=== PATIENT | male | born 1980 | race African-American/Black ===

== ENCOUNTER 2019-03-05 15:09 | Emergency (ER) | payer OTHER ==
[~2019-03-05] VITALS: Ht 172.7 cm; Wt 84.2 kg
[~2019-03-05 15:09] MED LIST: NOHOMEMEDICATIONS
[2019-03-05 15:36] LABS: ABSOLUTE BASOPHILS 0.1 thou/uL (0.0-0.2); ABSOLUTE EOSINOPHILS 0.1 thou/uL (0.0-0.7); ABSOLUTE LYMPHOCYTES 1.4 thou/uL (0.8-5.3); ABSOLUTE MONOCYTES 0.8 thou/uL (0.0-1.2); ABSOLUTE NEUTROPHILS 4.3 thou/uL (1.6-8.1); BASOPHILS 0.9 %; HEMOGLOBIN 14.7 gm/dL (14.0-18.0); LYMPHOCYTES 20.2 %; MCH 29.8 pg (26.0-34.0); MCHC 33.3 g/dL (28.0-37.0); MCV 89.3 fL (80.0-100.0); MONOCYTES 12.2 %; MPV 6.3 fl. (7.2-11.1); NUCLEATED RBCS 0 /100WBC; PLATELET COUNT* 284 thou/uL (150-400); POLYS 64.7 %; RBC 4.93 mil/uL (4.50-6.00); RDW-CV 14.5 % (10.5-14.5); WBC 6.7 thou/uL (4.0-11.0)
[2019-03-05 15:48] LABS: ANION GAP 10 mmol/L (7-16); BUN 18 mg/dL (7-18); CHLORIDE 102 mmol/L (98-107); CO2 29 mmol/L (21-32); CREATININE 1.2 mg/dL (0.6-1.3); GLUCOSE 126 mg/dL (70-99); POTASSIUM 3.7 mmol/L (3.5-5.1); SODIUM 141 mmol/L (136-145)
[2019-03-05 15:59] LABS: ALBUMIN 3.7 g/dL (3.4-5.0); ALKALINE PHOSPHATASE 116 U/L (46-116); NT-PRO BRAIN NAT PEPTIDE 24 pg/mL (<300); SGOT 18 U/L (15-37); SGPT 28 U/L (30-65); TOTAL BILIRUBIN 0.4 mg/dL (<0.1-1.0); TOTAL PROTEIN 7.8 g/dL (6.4-8.2); TROPONIN-I LEVEL <0.06 ng/mL (<0.06)
--- NOTE | 2019-03-05 16:55 | EKG ---
[place] [address] ELECTROCARDIOGRAM REPORT Name: ROSANGELA BARBOSA Room: [facility]#: [id number] Admission: 03/05/19 Attend Phys: Discharge: Date of : 82 Report #: [id number] THIS REPORT FOR: //name// [facility] ED Test Date: 2019-03-05 Test Time: 15:11:01 Pat Name: ROSANGELA BARBOSA Department: Room: Gender: M Legal Aide: UNKNOWN : 1980 Requested By: Cece Ribeiro Order Number: [id number] MD: Edmar Cornejo Measurements Intervals [place] Rate: 111 P: 63 DC: 122 QRS: 17 QRSD: 81 T: 44 QT: 347 QTc: 472 Interpretive Statements Sinus tachycardia Compared to ECG 08/23/2012 05:33:54 Sinus rhythm no longer present Electronically Signed On 03-05-2019 16:54:57 CDT by Edmar Cornejo [email or web address] <ELECTRONICALLY SIGNED> By: Edmar Cornejo MD, [facility] 03/05/19 1654 D: 06/1510 10 Edmar Cornejo MD, FACC /EPI
[2019-03-05 17:37] LABS: AMP/METHAMP POSITIVE (Negative); BARBITURATES Negative (Negative); BENZODIAZEPINES Negative (Negative); COCAINE POSITIVE (Negative); METHADONE Negative (Negative); OPIATES Negative (Negative); PCP Negative (Negative); THC Negative (Negative)
[2019-03-05 18:44] VITALS: BP 119/80
== END 2019-03-05 18:45 | disposition home or self-care (01) ==
LOC: M.ERS 15:09
PROVIDERS: Nurse Practitioner Family
DX: R07.89 Other chest pain (principal); F19.10 Other psychoactive substance abuse, uncomplicated; Z90.49 Acquired absence of other specified parts of digestive tract

== ENCOUNTER → 2020-09-19 | Emergency (ER) | payer MEDICAID ==
[~2020-09-19] VITALS: Ht 172.7 cm; Wt 88.5 kg
[2020-09-19 16:14] LABS: ABSOLUTE BASOPHILS 0.1 thou/uL (0.0-0.2); ABSOLUTE EOSINOPHILS 0.1 thou/uL (0.0-0.7); ABSOLUTE LYMPHOCYTES 2.1 thou/uL (0.8-5.3); ABSOLUTE MONOCYTES 0.7 thou/uL (0.0-1.2); ABSOLUTE NEUTROPHILS 3.2 thou/uL (1.6-8.1); BASOPHILS 1.3 %; EOSINOPHILS 2.2 %; HEMATOCRIT 43.4 % (42.0-52.0); HEMOGLOBIN 14.3 gm/dL (14.0-18.0); LYMPHOCYTES 33.2 %; MCH 29.7 pg (26.0-34.0); MCHC 32.9 g/dL (28.0-37.0); MCV 90.3 fL (80.0-100.0); MONOCYTES 11.7 %; MPV 6.1 fl. (7.2-11.1); NUCLEATED RBCS 0 /100WBC; PLATELET COUNT* 269 thou/uL (150-400); POLYS 51.6 %; RBC 4.81 mil/uL (4.50-6.00); RDW-CV 14.9 % (10.5-14.5); WBC 6.3 thou/uL (4.0-11.0)
[2020-09-19 16:21] VITALS: BP 163/107
[2020-09-19 16:23] LABS: CALCIUM 8.4 mg/dL (8.5-10.1); CREATININE 1.2 mg/dL (0.6-1.3); POTASSIUM 3.9 mmol/L (3.5-5.1)
[2020-09-19 16:27] LABS: ALBUMIN 3.8 g/dL (3.4-5.0); TOTAL BILIRUBIN 0.2 mg/dL (<0.1-1.0); TOTAL PROTEIN 7.2 g/dL (6.4-8.2)
[2020-09-19 16:32] LABS: ACETAMINOPHEN < 2 ug/mL (10-30); ALCOHOL < 10 mg/dL (<10); SALICYLATE < 2.8 mg/dL (2.8-20.0)
== END ==
LOC: M.ERS 15:41
PROVIDERS: Family Medicine
DX: R41.82 Altered mental status, unspecified (principal); I25.2 Old myocardial infarction; F17.210 Nicotine dependence, cigarettes, uncomplicated; Z90.49 Acquired absence of other specified parts of digestive tract

== ENCOUNTER → 2020-09-19 | Emergency (ER) | payer MEDICAID ==
[~2020-09-19] VITALS: Ht 172.7 cm; Wt 86.2 kg
[2020-09-19 17:17] VITALS: BP 184/106
== END ==
LOC: M.ERS 17:07
DX: R10.9 Unspecified abdominal pain (principal); I25.2 Old myocardial infarction; F17.210 Nicotine dependence, cigarettes, uncomplicated; Z90.49 Acquired absence of other specified parts of digestive tract